=== PATIENT | female | born 1950 | race Caucasian/White ===

== ENCOUNTER 2023-09-06 06:34 | Observation (INO) | payer MEDICARE ==
[2023-09-06] MEDS ORDERED: Morphine 4 MG/ML VIAL ONE (06:58)
[2023-09-06] MEDS ORDERED: Ondansetron PF 4 MG/2 ML Vial ONE (06:59)
[2023-09-06 07:07] LABS: #Basophils 0.1 thou/uL (0.0-0.2); #Eosinphils 0.3 thou/uL (0.0-0.7); #Monocytes 1.4 thou/uL (0.11-0.59); #Neutrophils 12.4 thou/uL (1.40-6.50); %Basophils 0.4 % (0.0-1.0); %Eosinophils 1.8 % (0.0-10.0); %Lymphocytes 3.6 % (21.0-51.0); %Monocytes 9.7 % (0.0-10.0); Hematocrit 41.8 % (36.0-47.0); Hemoglobin 14.1 g/dL (12.0-16.0); Mean Corpuscular HGB CONC 33.7 g/dL (32.0-36.0); Mean Corpuscular Hemoglobin 31.6 pg (27.0-31.0); Mean Corpuscular Volume 93.7 fl (78.0-98.0); Mean Platelet Volume 10.9 fL (7.4-10.4); Platelet Count 328 10x3/uL (130-400); RBC Distribution Width 14.7 % (11.5-14.5); Red Blood Cell (RBC) Count 4.46 mill/uL (4.20-5.40); White Blood Cell (WBC) Count 14.8 10x3/uL (4.8-10.8)
[2023-09-06 07:34] LABS: ALT (SGPT) 35 U/L (8-55); AST (SGOT) 38 U/L (5-34); Albumin 4.1 g/dL (3.4-4.8); Alkaline Phosphatase 137 U/L (40-110); Anion Gap 14 mmol/L (10-20); BUN (Urea Nitrogen) 11 mg/dL (9.8-20.1); Bilirubin, Total 1.2 mg/dL (0.2-1.2); Calc. Creatinine Clearance 0 mL/min (70-130); Calcium 9.4 mg/dL (7.8-10.44); Carbon Dioxide 22 mmol/L (23-31); Chloride 105 mmol/L (98-107); Estimated GFR 66; Globulin 3.3 g/dL (2.4-3.5); Glucose 121 mg/dL (83-110); Lipase 24 U/L (8-78); Magnesium 2.1 mg/dL (1.6-2.6); Potassium 3.7 mmol/L (3.5-5.1); Protein, Total 7.4 g/dL (5.8-8.1); Sodium 137 mmol/L (136-145)
[2023-09-06 07:38] LABS: Troponin I Less than 0.010 ng/mL (< 0.028)
[2023-09-06] MEDS ORDERED: Metoclopramide HCl 10 MG (2 mL) VIAL ONE (08:07)
[2023-09-06 08:11] LABS: Bacteria/HPF None Seen HPF (None Seen); Bilirubin Negative (Negative); Blood, Urine Negative (Negative); CAUTI Indications for Culture Pelvic or flank pain; Clarity Clear (Clear); Glucose, Urine (Dipstick) Normal (Negative); Ketone, Urine Negative (Negative); Leukocyte Negative Leu/uL (Negative); Nitrite Negative (Negative); Protein, Urine (Dipstick) Negative (Neg-Trace); RBC/HPF 0-3 HPF (0-3); Specific Gravity, Urine 1.014 (1.002-1.036); Squamous Epithelial None Seen HPF (0-3); Urobilinogen Normal mg/dL (Less than 2); WBC/HPF 0-3 HPF (0-3)
[2023-09-06 08:12] LABS: Urine Culture Reflex No No
[2023-09-06] MEDS ORDERED: Famotidine/PF 20 mg/2ml Vial ONE (08:46)
[2023-09-06] MEDS ORDERED: methylPREDNISolone Sod Succ 40 MG VIAL ONE (08:46)
[2023-09-06] MEDS ORDERED: diphenhydrAMINE 50 MG/ML VIAL ONE (08:46)
[2023-09-06] MEDS ORDERED: Piperacillin/Tazobactam 4.5 GM VIAL ONE (09:23)
[2023-09-06] MEDS ORDERED: Sodium Chloride 0.9% 100 ML ONE (09:24)
[2023-09-06] MEDS: Sodium Chloride 0.9% 1,000 ML IV SCH (12:47)
[2023-09-06] MEDS ORDERED: Ondansetron PF 4 MG/2 ML Vial IVP PRN (13:00)
[2023-09-06] MEDS ORDERED: Ondansetron ODT 4 MG TAB SL PRN (13:00)
[2023-09-06 13:49] VITALS: BMI 27.3
[2023-09-06] MEDS ORDERED: Lidocaine 1% PF 5 ML VIAL ONE (15:11)
[2023-09-06] MEDS ORDERED: Lidocaine 1% w/Epinephrine 1:100K 20 ML VIAL ONE (15:11)
[2023-09-06] MEDS ORDERED: fentaNYL 50 mcg/mL 1 mL Vial ONE (15:11)
[2023-09-06 18:33] LABS: RBC Count-Automated (BF) 2823 /cu.mm; WBC/Nucleated-Auto (BF) 4452 /cu.mm
[2023-09-06 18:53] LABS: BF Color Yellow; Clarity Hazy (Clear); Tube # EDTA
[2023-09-06 20:05] LABS: BF Segmented Neutrophils 93 %; Cell Count Non Hematic 7 %
[2023-09-06] MEDS: Morphine 4 MG/ML VIAL SLOW IVP PRN (20:37)
[2023-09-07] MEDS: HYDROcodone/Acetaminophen 5/325 mg Tablet PO PRN (03:06)
[2023-09-07 12:27] VITALS: BP 142/81; TEMP 97.9
[2023-09-07] MEDS: Ondansetron PF 4 MG/2 ML Vial IVP PRN (12:28)
== END 2023-09-07 13:42 | disposition home or self-care (01) ==
LOC: ERS 06:34 → SURG B 09:10
PROVIDERS: ADMIT Surgery; ATTEND Surgery
PROC: 0F943ZZ Drainage of Gallbladder, Percutaneous Approach (ICD-10-PCS; principal; 2023-09-06)
DX: K80.01 Calculus of gallbladder with acute cholecystitis with obstruction (principal); I10 Essential (primary) hypertension; Z79.82 Long term (current) use of aspirin; Z79.899 Other long term (current) drug therapy
CPT/HCPCS: 47490; 49020; 74176; 76705; 77002; 80053; 81001; 83690; 83735; 84484; 85025; 87070; 87077; 87186; 87205; 89051; 93005; 96361; 96365; 96375; 96376 ×2; 99285; G0378 ×2; 85060; J1200; J2270; J2405; J2543; J2765; J2920; J3010; J3490; J7050; S0028